=== PATIENT | male | born 1950 | race Two or more races ===

== ENCOUNTER → 2017-02-12 | Outpatient (CLI) | payer MEDICARE | END | disposition home or self-care (01) | LOC: LABWHC1 10:19 | PROVIDERS: ATTEND Orthopaedic Surgery | DX: Z01.812 Encounter for preprocedural laboratory examination (principal) | CPT/HCPCS: 87070 ==

== ENCOUNTER 2017-03-10 07:30 | Inpatient (IN) | payer MEDICARE ==
[2017-03-05 09:45] VITALS: BMI 42.0
--- NOTE | 2017-03-09 14:27 | HP ---
HISTORY AND PHYSICAL SURGERY SCHEDULED: 03/10/2017 HISTORY: Antonio Tapia is a 66-year-old patient is seen with symptomatic left knee osteoarthritis. After having treatment options discussed he elected to proceed with left total knee arthroplasty. Consent was obtained. Medical clearance was provided by Dr. Chun. PAST MEDICAL HISTORY: Hypertension, hyperlipidemia. PAST SURGICAL HISTORY: Right total knee arthroplasty. DAILY MEDICATIONS: 1. An antihypertensive. 2. Simvastatin. ALLERGIES: None reported. SOCIAL HISTORY: Patient denies current tobacco use. PHYSICAL EVALUATION OF THE LEFT KNEE: Range of motion is -1/2 to 120 degrees. Tenderness along the medial and lateral joint lines. Moderate effusion is present. There is crepitus along the medial and patellofemoral compartments with range of motion. There is pain with patellofemoral compression. Ligaments are stable. Hip rotation is without pain. Distal neurovascular exam is intact. Left knee radiographs reveal severe medial and patellofemoral compartment osteoarthritis. IMPRESSION: Left knee osteoarthritis. PLAN: Left total knee arthroplasty. MMODL / IJN: [id number] /
[~2017-03-10 07:30] MED LIST: ACETAMINOPHEN TAB 500 MG TAB PO ONE; MELOXICAM 7.5 MG TAB PO ONE; TRANEXAMIC ACID 1,000 MG in SODIUM CHLORIDE 0.9% 100 ML IVPB ONE; ceFAZolin 2 GM in SODIUM CHLORIDE 0.9% 100 ML IVPB ONE
[2017-03-10] MEDS ORDERED: LIDOCAINE 1% 20 ML VIAL (10MG/ML) FOR IV START INTRADERMA ONE (08:39)
[2017-03-10] MEDS: LACTATED RINGERS 1,000 ML IV SCH ×3 (08:39→15:37)
[2017-03-10] MEDS ORDERED: DEXAMETHASONE SOD PHOS (MDV) 100 MG/10 ML VIAL IV ONE (08:42)
[2017-03-10] MEDS ORDERED: ONDANSETRON 4 MG/2 ML VIAL IVP ONE (08:42)
[2017-03-10 09:09] LABS: Glucose,Whole Blood 116 mg/dL (75-99)
[2017-03-10] MEDS ORDERED: MIDAZOLAM 2 MG/2 ML VIAL IVP ONE (09:23)
[2017-03-10] MEDS ORDERED: ROPIVACAINE 1,100 MG, SODIUM CHLORIDE 0.9% 330 ML MISCELLANE PRN ×2 (09:52)
--- NOTE | 2017-03-10 09:54 | P.ONQ ---
Anesthesiology Proc Note - PNB - Peripheral Nerve Block Performed Right Adductor Canal Infusion Time Out Performed: Yes Procedure Start Time: :24 Procedure Stop Time: :34 Indication: Acute Post-Operative Pain, Requested by physician Sedation Type: Sedate with meaningful contact maintained Preparation: Sterile Dressing Position: Supine Catheter: Indwelling Needle Types: On-Q Needle Size: 100mm (4") Needle Gauge: 21 Technique: Ultrasound Injectate: 0.5% Ropivacaine (see comment for volume) (,5% ropi 20cc) Blood Aspirated: No Pain Paresthesia on Injection Noted: No Resistance on Injection: Normal Events: Uneventful and Well Tolerated
--- NOTE | 2017-03-10 10:04 | P.DS ---
Providers Date of admission: 03/10/17 08:17 Expected date of discharge: 03/12/17 Attending physician: Alejandro May Primary care physician: Nancy Coon [facility] Hospital Course: Date of admission: 03/10/2017 Date of discharge: 03/12/2017 Admission diagnosis: Status post left total knee arthroplasty Discharge diagnosis: Same Attending physician: Dr. May Surgical procedures: Left total knee arthroplasty Brief history: Patient is a 66-year-old male with a history of progressive primary left knee osteoarthritis. At this point patient has failed conservative treatment measures and has opted to proceed with a elective left total knee arthroplasty. Hospital course: Details of patient's surgery can be found in operative report. Patient tolerated the procedure well and was subsequently transported to orthopedic floor. Patient's orthopeidc and medical care was provided daily. Patient had daily laboratory tests performed for evaluation of overall blood counts. Patient had daily physical therapy to include strengthening range of motion as well as education with walker ambulation. Patient had daily CPM usage as part of their physical therapy program. Patient was treated with Lovenox for their postoperative DVT prophylaxis during their inpatient stay. Patient was noted to have a relatively uneventful postoperative course. Patient reported satisfactory pain control with oral pain medications by postoperative day 2. Patient showed satisfactory progress with physical therapy. Patient moved steadily through the program and had no difficulty meeting the goals by postoperative day 2. Given patient's otherwise satisfactory course and having met physical therapy goals, plan is to discharge patient home on postoperative day 2. Discharge condition/disposition: Patient will be discharged home in stable condition. Discharge medications: Instructions are given on resumption of patient's normal daily medications per primary care recommendation, in addition patient will be prescribed N[place]alton 7.5 mg/325 mg, tramadol 50 mg, Vistaril 25 mg, Pepcid 20 mg, Xarelto 10 mg. Discharge instructions: 1. Wound care and infection precautions, keep incision dry and covered while showering, no lotions, creams, moisturizers. No soaking, tubs, pools, hottubs. Do not scrub over the incision. 2. Weight-bear as tolerated with walker / cane until follow-up. 3. Ice and elevate when necessary. Do not exceed 20 minutes per hour with ice pack. 4. Utilize compression sleeve until seen at first follow up appointment. 5. Visiting nursing care. 6. Home physical therapy including home CPM]. 7. Pain meds and anticoagulants per prescription. 8. Pain medication has potential to cause constipation. Increase oral fluid and fiber intake. Contact primary care provider if you have not had a bowel movement within 48 hours after discharge 9. No anti-inflammatory medication until discussed at first post operative visit, this including Motrin, Aleve, Mobic, Diclofenac. 10. Follow up in office at 2 weeks postop with Mio Ruteldge PA-C 11. Follow up with your primary care doctor 7-10 days after discharge. 12. Contact [facility] with any questions, . Procedures: Left total knee arthroplasty Patient Condition at Discharge: Good Plan - Discharge Summary New Discharge Prescriptions: New Rivaroxaban [Xarelto] 10 mg PO DAILY #12 tab Famotidine [Pepcid] 20 mg PO DAILY #30 tablet HYDROcodone/APAP 7.5-325MG [Nondalton 7.5] 1 - 2 each PO Q6HR PRN #60 tab PRN Reason: Pain hydrOXYzine PAMOATE [Vistaril] 25 mg PO Q6HR #40 capsule traMADol HCl [Ultram] 50 mg PO Q6H PRN #40 tab PRN Reason: Pain No Action Simvastatin [Zocor] 40 mg PO QAM Losartan/Hydrochlorothiazide [Losartan-Hctz 100-25 mg Tab] 1 tab PO QAM Ibuprofen 600 mg PO DAILY PRN PRN Reason: Pain Tamsulosin [Flomax] 0.4 mg PO HS Aspirin [Adult Low Dose Aspirin EC] 81 mg PO DAILY Discharge Medication List Losartan/Hydrochlorothiazide [Losartan-Hctz 100-25 mg Tab] 1 tab PO QAM [History] Simvastatin [Zocor] 40 mg PO QAM 05/08/16 [History] Aspirin [Adult Low Dose Aspirin EC] 81 mg PO DAILY 03/05/17 [History] Ibuprofen 600 mg PO DAILY PRN 03/05/17 [History] Tamsulosin [Flomax] 0.4 mg PO HS 03/05/17 [History] Rivaroxaban [Xarelto] 10 mg PO DAILY #12 tab 03/11/17 [Rx] Famotidine [Pepcid] 20 mg PO DAILY #30 tablet 03/12/17 [Rx] HYDROcodone/APAP 7.5-325MG [Nondalton 7.5] 1 - 2 each PO Q6HR PRN #60 tab 03/12/17 [ Rx] hydrOXYzine PAMOATE [Vistaril] 25 mg PO Q6HR #40 capsule 03/12/17 [Rx] traMADol HCl [Ultram] 50 mg PO Q6H PRN #40 tab 03/12/17 [Rx] Follow up Appointment(s)/Referral(s): [facility], [NON-STAFF] - Gamaliel Rutledge, HIMA [[employer]] - 2 Weeks Activity/Diet/Wound Care/Special Instructions: Orthopedic Discharge Instructions: 1. Wound care and infection precautions, keep incision dry and covered while showering, no lotions, creams, moisturizers. No soaking, pools, hot tubs. Do not scrub over incision. 2. Weight-bear as tolerated with walker / cane until follow-up. 3. Ice and elevate when necessary. Do not exceed 20 minutes per hour with ice pack. 4. Utilize compression sleeve until seen at first follow up appointment. 5. Visiting nursing care. 6. Home physical therapy including home CPM. 7. Pain meds and anticoagulants per prescription. 8. Pain medication has potential to cause constipation. Increase oral fluid and fiber intake. Contact primary care provider if you have not had a bowel movement within 48 hours after discharge. 9. No anti-inflammatory medication until discussed at first post operative visit, this including Motrin, Aleve, Mobic, Diclofenac. 10. Follow up in office at 2 weeks postop with Mio Rutledge PA-C 11. Follow up with your primary care doctor 7-10 days after discharge. 12. Contact [facility] with any questions, . Discharge Disposition: HOME WITH HOME HEALTH SERVICES
[2017-03-10] MEDS ORDERED: TRANEXAMIC ACID 1,000 MG/10 ML VIAL ONE (10:23)
[2017-03-10] MEDS ORDERED: ceFAZolin 3,000 MG in SODIUM CHLORIDE 0.9% IRRIGATIO 3,000 ML IRRIGATION ONE (10:23)
[2017-03-10] MEDS ORDERED: fentaNYL (PF) 50 MCG/ML 2 ML AMP ONE (10:23)
[2017-03-10] MEDS ORDERED: PROPOFOL 10 MG/ML 20 ML VIAL IV ONE (10:23)
[2017-03-10] MEDS ORDERED: MIDAZOLAM 2 MG/2 ML VIAL ONE (10:23)
[2017-03-10] MEDS ORDERED: SODIUM CHLORIDE 0.9% 100 ML BAG ONE (10:23)
[2017-03-10] MEDS: ROPIVACAINE 246.25 MG, EPINEPHrine 0.5 MG, KETOROLAC 30 MG, cloNIDine HCL/PF 80 MCG, WA... MISCELLANE ONE ×10 (10:58→11:53)
[2017-03-10] MEDS ORDERED: LACTATED RINGERS 1,000 ML IV ONE (11:08)
[2017-03-10] MEDS ORDERED: NALOXONE 0.4 MG/ML 1 ML VIAL IV PRN (12:44)
[2017-03-10] MEDS ORDERED: HYDROmorphone 1 MG/ML 1 ML SYRINGE IVP PRN ×3 (12:44)
[2017-03-10] MEDS ORDERED: HYDROcodone/APAP 7.5-325MG 1 EACH TAB PO PRN (12:44)
[2017-03-10] MEDS ORDERED: hydrOXYzine PAMOATE 25 MG CAP PO PRN (12:44)
--- NOTE | 2017-03-10 12:44 | P.OP ---
Date of Procedure: 03/10/17 Preoperative Diagnosis: Left knee osteoarthritis Postoperative Diagnosis: Left knee osteoarthritis Procedure(s) Performed: Left total knee arthroplasty Implants: 1. Kerwin persona left size 9 cruciate retaining standard cemented femur 2. Kerwin persona left size F cemented tibia 3. Kerwin persona 10 mm medial congruent polyethylene tibial insert 4. Kerwin persona 38 mm all polyethylene cemented patella Anesthesia: regional (Adductor canal catheter), spinal Surgeon: Alejandro May Film Flat Inspector #1: Gamaliel Rutledge Estimated Blood Loss (ml): 200 Pathology: other (Bone) Condition: stable Disposition: PACU Indications for Procedure: 66-year-old patient seen with progressive left knee pain. After treatment options were discussed, he elected to proceed with total knee arthroplasty. Operative Findings: see description of procedure Description of Procedure: Patient was taken to the operative suite after having an adductor canal catheter placed by the department of anesthesia. Patient underwent a spinal anesthetic by the department of anesthesia. Patient was given preoperative IV intake antibiotics and TXA. A well-padded tourniquet was placed about the left lower extremity. The lower extremity was then prepped and draped in the normal sterile orthopedic fashion. A standard anterior incision was made sharply through skin. Dissection was taken down through the subcutaneous soft tissues down to the extensor mechanism. A medial arthrotomy was performed, patella was everted and knee was flexed. There was advanced osteoarthritis noted. A proximal tibial cutting guide was positioned. Proximal tibial cut was made. A distal intramedullary femoral cutting guide was positioned, distal femoral cut made. We placed the appropriate sizing guide and selected the appropriate size. A distal 4-in-1 femoral cutting block was positioned, distal femoral cuts were made. We now placed a trial femoral component into position, along with an appropriate size tibial tray and insert. We now took the knee through range of motion and had full extension good flexion and good overall soft tissue balance noted. The patella was everted and a flush cut made with patellar quad tendon. We templated the patella, appropriate drill holes were made. An appropriate trial patella was positioned, knee was taken through full range of motion with the patella tracking very nicely. The trial patella was removed. Drill holes were made through the femoral component. All trial components were removed after marking off the appropriate rotation of the tibia. Retractors were now positioned along the proximal tibia. An appropriate keel punch was made with the appropriate size tibial guide. The tourniquet was insufflated to 350. At this point appropriate size implants were chosen and opened. The joint was irrigated copiously with pulse lavage mechanical irrigation. The deep soft tissues were infiltrated local analgesic. We mixed antibiotic methylmethacrylate. Once the methyl methacrylate was ready, the tibial component was cemented into place removing any excess methylmethacrylate. The femoral component was cemented into place removing the removing any excess methylmethacrylate. We then inserted the appropriate size polyethylene tibial insert. We made sure that it was locked into position. We took the knee into full extension, and then back in a flexion making sure we had removed any excess methylmethacrylate. The patellar component was then cemented down and secured with clamp. Excess methylmethacrylate removed. We kept the knee in full extension, patellar clamp in position until methylmethacrylate had hardened. Once it had hardened the patellar clamp was removed. The knee was taken through full range of motion. The patella tracked nicely. There was good soft tissue balancing. The tourniquet was now released. Additional hemostasis was achieved via electrocautery. A second gram of TXA was given. The wound was irrigated with pulse lavage mechanical irrigation. The superficial soft tissues were infiltrated local analgesic. The extensor mechanism was repaired with Vicryl. We checked the repair with range of motion and it was stable. The subcutaneous soft tissues were repaired with Vicryl in layers. The skin was approximated with pernio/Dermabond. Sterile dressings were applied followed by loose web roll and Shabbir bandage. The patient was transferred to a bed, and taken to recovery in stable and satisfactory condition. Mio ALBERTS assisted with the procedure.
--- NOTE | 2017-03-10 13:11 | XR ---
EXAMINATION TYPE: XR knee limited LT DATE OF EXAM: 03/10/2017 COMPARISON: NONE TECHNIQUE: Two views submitted HISTORY: Post op FINDINGS: There is a prosthetic knee in near anatomic alignment. There is soft tissue edema and emphysema. Va scular calcifications noted. IMPRESSION: 1. Postoperative change. Appears in near-anatomic alignment
[2017-03-10] MEDS ORDERED: HYDROmorphone 1 MG/ML 1 ML SYRINGE IVP ONE ×2 (14:09→14:20)
[2017-03-10] MEDS: traMADol 50 MG TAB PO SCH ×3 (15:37→21:10)
[2017-03-10] MEDS: ceFAZolin 2 GM in SODIUM CHLORIDE 0.9% 100 ML IVPB SCH (16:42)
--- NOTE | 2017-03-10 18:46 | P.CONS ---
History of Present Illness - Reason for Consult Consult date: 03/10/17 Medical management Requesting physician: Alejandro May - Chief Complaint Left total knee arthroplasty, CAD, hypertension, hyperlipidemia, BPH - History of Present Illness 66-year-old male overweight [address] Chun patient's with past medical history of hypertension hyperlipidemia and CAD post [place] who has been having severe pain and arthritis of the left knee for the last few years had failed conservative management not been able to ambulate and walk was referred to see Dr. May and with testing showed severe advanced arthritis patient was scheduled for elective left total knee arthroplasty which was done today with Dr. May successfully with no major complication. Patient was admitted to the medical floor after surgery feeling well no change in his hemodynamic status and feeling well pain is under control. Review of Systems Constitutional: Reports chronic pain, Reports fatigue, Reports lethargy, Denies as per HPI, Denies anorexia, Denies chills, Denies chronic headaches, Denies daytime sleepiness, Denies fever, Denies malaise, Denies night sweats, Denies poor appetite, Denies sweats, Denies weakness, Denies weight gain, Denies weight loss Eyes: bilateral as per HPI Ears: bilateral: decreased hearing Ears, nose, mouth and throat: Reports dental pain, Reports headache, Reports nasal congestion, Reports sinus pain, Reports sinus pressure, Denies as per HPI , Denies ant. neck pain, Denies bleeding gums, Denies dysphagia, Denies epistaxis, Denies hoarseness, Denies mouth pain, Denies nasal discharge, Denies neck fullness/pressure, Denies neck lump, Denies nose pain, Denies odynophagia, Denies post-nasal drip, Denies swelling in mouth, Denies swelling in throat, Denies sore throat, Denies vertigo, Denies voice changes Cardiovascular: Reports dyspnea on exertion, Reports edema, Reports high blood pressure, Reports lightheadedness, Reports orthopnea, Reports palpitations, Reports rapid heart beat, Denies as per HPI, Denies chest pain, Denies claudication, Denies decreased exercise tolerance, Denies irregular heart beat, Denies leg edema, Denies paroxysmal nocturnal dyspnea, Denies phlebitis, Denies shortness of breath, Denies syncope Respiratory: Reports congestion, Reports dyspnea, Reports respiratory infections , Reports wheezing, Denies as per HPI, Denies cough, Denies cough with sputum, Denies excessive sputum, Denies hemoptysis, Denies home oxygen, Denies pain, Denies pain on inspiration, Denies pleurisy, Denies sleep apnea, Denies snoring Gastrointestinal: Reports abdominal pain, Reports bloating, Reports dyspepsia, Reports indigestion, Reports loss of appetite, Reports nausea, Denies as per HPI , Denies belching, Denies BRBPR, Denies change in bowel habits, Denies coffee ground emesis, Denies constipation, Denies diarrhea, Denies early satiety, Denies excessive gas, Denies heartburn, Denies hematemesis, Denies hematochezia , Denies jaundice, Denies lactose intolerance, Denies melena, Denies vomiting Genitourinary: Reports dysuria, Reports polyuria, Reports urinary frequency, Reports urinary hesitancy, Reports urinary retention, Denies as per HPI, Denies decreased libido, Denies difficulties fathering child, Denies discharge, Denies erectile dysfunction, Denies flank pain, Denies genital pain, Denies genital sores, Denies hematuria, Denies impotence, Denies incontinence, Denies kidney stones, Denies nocturia, Denies testicular lump, Denies testicular pain Musculoskeletal: Reports frequent falls, Reports limitation of motion, Reports low back pain, Reports neck pain, Reports neck stiffness, Denies as per HPI, Denies arm numbness/tingling, Denies atrophy, Denies fractures, Denies gait dysfunction, Denies hot joints, Denies leg numbness/tingling, Denies loss of height, Denies morning stiffness, Denies muscle cramps, Denies muscle weakness, Denies myalgias, Denies prior amputations, Denies redness of joints, Denies shooting arm pain, Denies shooting leg pain Integumentary: Reports rash, Denies as per HPI, Denies acne, Denies boils, Denies brittle nails, Denies change in hair/nails, Denies color changes, Denies darkening of skin, Denies depigmentation, Denies dryness, Denies foot/leg ulcers , Denies growths, Denies hirsutism, Denies lesions, Denies onychomycosis, Denies pruritus, Denies sores, Denies striae, Denies unusual bruising, Denies wounds Neurological: Reports numbness, Reports paresthesias, Reports tingling, Denies as per HPI, Denies aphasia, Denies ataxia, Denies balance difficulties, Denies burning pain, Denies change in mentation, Denies change in smell/taste, Denies change in speech, Denies confusion, Denies convulsions, Denies double vision, Denies gait dysfunction, Denies head injury, Denies headaches, Denies hearing difficulties, Denies lack of coordination, Denies loss of vision, Denies memory loss, Denies migraines, Denies motor disturbance, Denies paralysis, Denies seizures, Denies sensory deficit, Denies spasticity, Denies syncope, Denies tic , Denies transient paralysis, Denies tremors, Denies vertigo, Denies weakness, Denies visual changes Psychiatric: Reports anxiety, Denies as per HPI, Denies anhedonia, Denies anxiety attacks, Denies change in appetite, Denies change in libido, Denies change in sleep habits, Denies confusion, Denies depression, Denies difficulty concentrating, Denies disorientation, Denies hallucinations, Denies hopelessness , Denies hypersomnia, Denies insomnia, Denies irritability, Denies memory loss, Denies mood swings, Denies paranoia, Denies sadness/tearfulness, Denies sleep disturbances, Denies suicidal ideation Endocrine: Reports cold intolerance, Reports fatigue, Reports nocturia, Reports polydipsia, Denies as per HPI, Denies deepening of the voice, Denies excessive sweating, Denies excessive thirst, Denies flushing, Denies heat intolerance, Denies high blood sugars, Denies increase in ring/shoe/hat size, Denies low blood sugars, Denies palpitations, Denies polyphagia, Denies polyuria, Denies proptosis, Denies recent glucocorticoid use, Denies thyroid mass, Denies weight change Hematologic/Lymphatic: Reports easy bruising, Denies as per HPI, Denies easy bleeding, Denies lymphadenopathy, Denies lymphedema, Denies thrombophilia Allergic/Immunologic: Denies as per HPI, Denies allergic rhinitis, Denies anaphylaxis, Denies angioedema, Denies gluten intolerance, Denies persistent infections, Denies seasonal allergies, Denies urticaria, Denies wheezing Past Medical History Past Medical History: Cancer, Eye Disorder, Hearing Disorder / Deafness, Hyperlipidemia, Hypertension, Myocardial Infarction ([place]), Osteoarthritis (OA), Prostate Disorder, Sleep Apnea/CPAP/BIPAP Additional Past Medical History / Comment(s): legally blind lt eye, hx bladder and skin cancer, diet control diabetic, frequent urinartion Last Myocardial Infarction Date:: 1989 History of Any Multi-Drug Resistant Organisms: None Reported Past Surgical History: Joint Replacement, Orthopedic Surgery Additional Past Surgical History / Comment(s): Traumatic amputation index digit lt hand, tumor removed from bladder, rt knee replacement, spinal steriod injections, Past Anesthesia/Blood Transfusion Reactions: Postoperative Nausea & Vomiting ( PONV) Additional Past Anesthesia/Blood Transfusion Reaction / Comm: PONV one time Smoking Status: Former smoker - Past Family History Mother Family Medical History: Cancer, Hypertension Father Family Medical History: Myocardial Infarction ([place]) Medications and Allergies Home Medications Medication Instructions Recorded Confirmed Type Losartan/Hydrochlorothiazide 1 tab PO QAM 05/08/16 03/10/17 History [Losartan-Hctz 100-25 mg Tab] Simvastatin [Zocor] 40 mg PO QAM 05/08/16 03/10/17 History Aspirin [Adult Low Dose Aspirin EC] 81 mg PO DAILY 03/05/17 03/10/17 History Ibuprofen 600 mg PO DAILY PRN 03/05/17 03/10/17 History Tamsulosin [Flomax] 0.4 mg PO HS 03/05/17 03/10/17 History Allergies Allergy/AdvReac Type Severity Reaction Status Date / Time No Known Allergies Allergy Verified 03/10/17 13:30 Physical Exam Vitals: Vital Signs Temp Pulse Resp BP Pulse Ox 03/10/17 17:05 83 131/54 03/10/17 16:50 75 131/64 03/10/17 16:35 71 125/63 03/10/17 16:20 72 118/66 03/10/17 16:05 69 133/69 03/10/17 15:50 71 121/69 03/10/17 15:35 72 126/82 03/10/17 15:20 74 125/82 03/10/17 15:05 96.9 F L 77 16 112/85 97 03/10/17 14:45 67 16 117/67 99 03/10/17 14:30 69 16 118/67 98 03/10/17 14:15 67 16 116/68 97 03/10/17 14:00 69 16 116/70 98 03/10/17 13:45 67 16 118/70 97 03/10/17 13:30 70 16 118/68 98 03/10/17 13:15 72 16 112/67 99 03/10/17 13:00 67 16 110/71 97 03/10/17 12:45 97.8 F 70 16 108/71 97 03/10/17 09:40 68 18 117/60 97 03/10/17 08:37 97.7 F 87 16 114/81 96 Intake and Output 03/10/17 03/10/17 03/10/17 06:59 14:59 22:59 Intake Total 1801 Output Total 450 Balance 1351 Intake: IV 1801 Output: Urine 250 Estimated Blood Loss 200 - Constitutional General appearance: no average body habitus, cooperative, no disheveled, no mild distress, no morbidly obese, no acute distress, obese, no severe distress, no thin - EENT Eyes: no abnormal pupil, no anicteric sclerae, no disc margins sharp, no edentulous, no EOMI, no PERRLA, no fundus normal, no photophobia, no dentition normal, no poor dentition, no ptosis, no scleral icterus, normal appearance ENT: no hard of hearing, no hearing grossly normal, no NA/AT, normal oropharynx , no other, no pharyngeal erythema, no thrush, no tonsillar exudates, no tonsillar swelling Ears: bilateral: normal - Neck Neck: no lymphadenopathy, normal ROM, no other, no rigidity, no stridor, no thyromegaly Carotids: bilateral: upstroke normal Thyroid: bilateral: normal size - Respiratory Respiratory: bilateral: CTA, diminished - Cardiovascular Rhythm: regular Heart sounds: normal: S1, S2 Abnormal Heart Sounds: systolic murmur, S3 Gallop - Gastrointestinal General gastrointestinal: no absent bowel sounds, no decreased bowel sounds, distended, no hepatomegaly, no hyperactive bowel sounds, normal bowel sounds, no organomegaly, no rigid, no scaphoid, soft, no splenomegaly, no tenderness, no umbilical hernia, no ventral hernia - Integumentary Incision of his left knee looks good with no hematoma bleeding no induration or sign of infection. Integumentary: no calor, no cellulitis, no cyanotic, no decreased turgor, no flushed, no jaundiced, normal, no normal turgor, pale, no rash, no ulcer - Neurologic Neurologic: CNII-XII intact - Musculoskeletal Musculoskeletal: no gait normal, generalized weakness, no strength equal bilaterally, no right sided weakness, no left sided weakness - Psychiatric Psychiatric: A&O x's 3, appropriate affect, no intact judgment & insight Results Labs: Abnormal Lab Results - Last 24 Hours (Table) 03/10/17 Range/Units 08:55 POC Glucose (mg/dL) 116 H (75-99) mg/dL Assessment and Plan Plan: 1 post left total knee arthroplasty: Resume home meds continue GI, DVT and pulmonary prophylaxis protocol. 2 history of CAD: No chest pain or angina has been doing good with no symptoms lately. 3 hypertension: Resume losartan HCT at 100/25 g a day. 4 hyperlipidemia: Remain on Zocor 40 mg daily. 5 BPH: Doing much better on Flomax 0.4 mg daily. 6 obstructive sleep apnea: Has been on CPAP which will be resume in the hospital. 7 DVT prophylaxis: Patient be continue on DVT prophylaxis protocol per orthopedic. 8 GI prophylaxis: Patient be on Pepcid 20 mg daily. CODE STATUS: Full code. Dr. May thank you much for the consult if I can be of any further help to please let me know.
[2017-03-10] MEDS: SENNOSIDES-DOCUSATE SODIUM 1 EACH TAB PO SCH (20:17)
[2017-03-10] MEDS: ENOXAPARIN 30 MG/0.3 ML SYRINGE SQ SCH (20:41)
[2017-03-10] MEDS: TAMSULOSIN 0.4 MG CAP.ER.24H PO SCH (20:41)
[2017-03-11] MEDS: ceFAZolin 2 GM in SODIUM CHLORIDE 0.9% 100 ML IVPB SCH (00:09)
[2017-03-11 00:25] VITALS: RESP 16
[2017-03-11] MEDS: LACTATED RINGERS 1,000 ML IV SCH ×3 (01:05→08:26)
[2017-03-11] MEDS: HYDROcodone/APAP 7.5-325MG 1 EACH TAB PO PRN ×4 (03:48→20:48)
[2017-03-11 07:53] LABS: Basophils % (A) 0 %; CH 33.4; CHCM 35.3; Eosinophils # (A) 0.1 k/uL (0-0.7); Eosinophils % (A) 1 %; HCT 33.8 % (39.0-53.0); HDW 2.53; Luc # (Auto) 0.19; Luc % (Auto) 2; Lymphocytes % (A) 16 %; MCH 32.5 pg (25.0-35.0); MCHC 34.2 g/dL (31.0-37.0); MCV 94.9 fL (80.0-100.0); Mean Platelet Volume 7.2; Monocytes # (A) 0.7 k/uL (0-1.0); Monocytes % (A) 6 %; Neutrophils # (A) 9.4 k/uL (1.3-7.7); Neutrophils % (A) 76 %; RBC 3.56 m/uL (4.30-5.90); RDW 13.3 % (11.5-15.5); WBC 12.5 k/uL (3.8-10.6); WBC (Perox) 12.61
[2017-03-11] MEDS: traMADol 50 MG TAB PO SCH ×4 (07:55→22:45)
[2017-03-11 08:03] LABS: HGB 11.6 gm/dL (13.0-17.5)
[2017-03-11] MEDS: FAMOTIDINE 20 MG TAB PO SCH (08:21)
[2017-03-11] MEDS: ATORVASTATIN 20 MG TAB PO SCH (08:21)
[2017-03-11] MEDS: ASPIRIN 81 MG CHEW PO SCH (08:21)
[2017-03-11] MEDS: MELOXICAM 7.5 MG TAB PO SCH (08:21)
[2017-03-11] MEDS: LOSARTAN-HCTZ 50-12.5 MG 1 EACH TAB PO SCH (08:21)
[2017-03-11] MEDS: ENOXAPARIN 30 MG/0.3 ML SYRINGE SQ SCH ×2 (08:21→20:45)
--- NOTE | 2017-03-11 10:42 | P.PN ---
Progress Note - Text 03/11 620am 66-year-old male status post total knee replacement by Dr. May. patient has an On-Q pump for postop pain control, with vas 0f 7 this morning. The rate of infusion was increased to 12 mL an hour. He was starting to feel better. We 'll reevaluate in morning
[2017-03-11] MEDS ORDERED: MULTIVITAMINS, THERA 1 EACH TAB PO SCH (12:00)
--- NOTE | 2017-03-11 14:21 | P.PN ---
Subjective Principal diagnosis: Status post left total knee arthroplasty Patient is seen today resting in his hospital bed, his family at bedside. She' s doing well at this point. He is ambulating with therapy. His pain is well- controlled. He denies any headaches, lightheadedness, chest pain, shortness of breath. Objective - Vital Signs Vital signs: Vital Signs Temp 97.7 F 03/11/17 07:54 Pulse 76 03/11/17 07:54 Resp 16 03/11/17 07:54 BP 112/68 03/11/17 07:54 Pulse Ox 97 03/11/17 07:54 Intake & Output 03/10/17 03/11/17 03/11/17 18:59 06:59 18:59 Intake Total 1801 1550 240 Output Total 450 975 100 Balance 1351 575 140 Intake: IV 1801 Intake, IV Titration 800 Amount Lactated Ringers 1,000 ml 800 @ 100 mls/hr IV .Q10H [facility] Rx#:[id number] Oral 750 240 Output: Urine 250 975 100 Uretheral (Bassett) 350 100 Estimated Blood Loss 200 Other: Voiding Method Indwelling Catheter Indwelling Catheter # Voids 2 - Exam Left lower extremity: Incision is clean, dry and intact. Minimal soft tissue swelling present on the knee. Anterior posterior compartments of the upper leg are soft. Calf is soft , no tenderness with palpation. Plantar flexion, dorsiflexion, EHL, FHL are intact. Sensory exam light touch throughout the extremities intact, dorsal pedis pulses 2+ - Labs CBC & Chem 7: 03/11/17 07:12 Labs: Abnormal Lab Results - Last 24 Hours (Table) 03/11/17 Range/Units 07:12 WBC 12.5 H (3.8-10.6) k/uL RBC 3.56 L (4.30-5.90) m/uL Hgb 11.6 L D (13.0-17.5) gm/dL Hct 33.8 L (39.0-53.0) % Neutrophils # 9.4 H (1.3-7.7) k/uL Assessment and Plan Plan: Assessment: 1. Postop day #1 status post left total knee arthroplasty Plan: 1. Pain control, continue supportive oral medication 2. Continue therapy and CPM 3. Daily dressing changes/ice and elevate 4. Encourage incentive spirometer 5. GI and DVT prophylaxis, continue Lovenox 6. Medical recommendations 7. Discharge planning: Patient will be likely discharged home tomorrow Time with Patient: Less than 30
--- NOTE | 2017-03-11 15:47 | P.PN ---
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 May and with testing showed severe advanced arthritis patient was scheduled for elective left total knee arthroplasty which was done today with Dr. May successfully with no major complication. Patient was admitted to the medical floor after surgery feeling well no change in his hemodynamic status and feeling well pain is under control. 03/11: Today the patient was seen and evaluated. He is status post left total knee arthroplasty with Dr. May. He is doing very well, reports pain is well controlled. Bassett catheter removed today, will watch for signs of urinary retention. No post operative complications have been noted so far, will continue to watch for any signs of complications. Objective - Vital Signs Vital signs: Vital Signs Temp 97.7 F 03/11/17 07:54 Pulse 76 03/11/17 07:54 Resp 16 03/11/17 07:54 BP 112/68 03/11/17 07:54 Pulse Ox 97 03/11/17 07:54 Intake & Output 03/10/17 03/11/17 03/11/17 18:59 06:59 18:59 Intake Total 1801 1550 240 Output Total 450 975 100 Balance 1351 575 140 Intake: IV 1801 Intake, IV Titration 800 Amount Lactated Ringers 1,000 ml 800 @ 100 mls/hr IV .Q10H [facility] Rx#:[id number] Oral 750 240 Output: Urine 250 975 100 Uretheral (Bassett) 350 100 Estimated Blood Loss 200 Other: Voiding Method Indwelling Catheter Indwelling Catheter - Exam - Constitutional General appearance: no average body habitus, cooperative, no disheveled, no mild distress, no morbidly obese, no acute distress, obese, no severe distress, no thin - EENT Eyes: no abnormal pupil, no anicteric sclerae, no disc margins sharp, no edentulous, no EOMI, no PERRLA, no fundus normal, no photophobia, no dentition normal, no poor dentition, no ptosis, no scleral icterus, normal appearance ENT: no hard of hearing, no hearing grossly normal, no NA/AT, normal oropharynx , no other, no pharyngeal erythema, no thrush, no tonsillar exudates, no tonsillar swelling Ears: bilateral: normal - Neck Neck: no lymphadenopathy, normal ROM, no other, no rigidity, no stridor, no thyromegaly Carotids: bilateral: upstroke normal Thyroid: bilateral: normal size - Respiratory Respiratory: bilateral: CTA, diminished - Cardiovascular Rhythm: regular Heart sounds: normal: S1, S2 Abnormal Heart Sounds: systolic murmur, S3 Gallop - Gastrointestinal General gastrointestinal: no absent bowel sounds, no decreased bowel sounds, distended, no hepatomegaly, no hyperactive bowel sounds, normal bowel sounds, no organomegaly, no rigid, no scaphoid, soft, no splenomegaly, no tenderness, no umbilical hernia, no ventral hernia - Integumentary Incision of his left knee looks good with no hematoma bleeding no induration or sign of infection. Integumentary: no calor, no cellulitis, no cyanotic, no decreased turgor, no flushed, no jaundiced, normal, no normal turgor, pale, no rash, no ulcer - Neurologic Neurologic: CNII-XII intact - Musculoskeletal Musculoskeletal: no gait normal, generalized weakness, no strength equal bilaterally, no right sided weakness, no left sided weakness - Psychiatric Psychiatric: A&O x's 3, appropriate affect, no intact judgment & insight - Labs CBC & Chem 7: 03/11/17 07:12 Labs: Abnormal Lab Results - Last 24 Hours (Table) 03/11/17 Range/Units 07:12 WBC 12.5 H (3.8-10.6) k/uL RBC 3.56 L (4.30-5.90) m/uL Hgb 11.6 L D (13.0-17.5) gm/dL Hct 33.8 L (39.0-53.0) % Neutrophils # 9.4 H (1.3-7.7) k/uL Assessment and Plan Plan: 1 post left total knee arthroplasty: Resume home meds continue GI, DVT and pulmonary prophylaxis protocol. 2 history of CAD: No chest pain or angina has been doing good with no symptoms lately. 3 hypertension: Resume losartan HCT at 100/25 g a day. 4 hyperlipidemia: Remain on Zocor 40 mg daily. 5 BPH: Doing much better on Flomax 0.4 mg daily. 6 obstructive sleep apnea: Has been on CPAP which will be resume in the hospital. 7 DVT prophylaxis: Patient be continue on DVT prophylaxis protocol per orthopedic. 8 GI prophylaxis: Patient be on Pepcid 20 mg daily. CODE STATUS: Full code. Dr. May thank you much for the consult if I can be of any further help to please let me know. The above impression and plan were directed and discussed with the signing physician, Angelica Robledo nurse practitioner, acting as a scribe.
[2017-03-11] MEDS: TAMSULOSIN 0.4 MG CAP.ER.24H PO SCH (20:46)
[2017-03-11] MEDS: SENNOSIDES-DOCUSATE SODIUM 1 EACH TAB PO SCH (20:46)
[2017-03-12] MEDS: HYDROcodone/APAP 7.5-325MG 1 EACH TAB PO PRN ×2 (06:06→10:41)
[2017-03-12] MEDS: LACTATED RINGERS 1,000 ML IV SCH ×2 (06:57→08:47)
[2017-03-12 07:38] VITALS: BP 151/90; PULSE 91; TEMP 98.5
--- NOTE | 2017-03-12 08:13 | P.PN ---
Subjective Principal diagnosis: Status post left total knee arthroplasty Patient is seen today resting in his hospital bed, his family at bedside. He is ambulating with therapy. His pain is well-controlled. He denies any headaches , lightheadedness, chest pain, shortness of breath. Objective - Vital Signs Vital signs: Vital Signs Temp 98.5 F 03/12/17 07:37 Pulse 91 03/12/17 07:37 Resp 16 03/12/17 07:37 BP 151/90 03/12/17 07:37 Pulse Ox 94 L 03/12/17 07:37 Intake & Output 03/11/17 03/12/17 03/12/17 18:59 06:59 18:59 Intake Total 240 2120 Output Total 100 Balance 140 2120 Intake: Intake, IV Titration 200 Amount Lactated Ringers 1,000 ml 200 @ 100 mls/hr IV .Q10H [facility] Rx#:[id number] Oral 240 1920 Output: Urine 100 Uretheral (Bassett) 100 Other: Voiding Method Indwelling Catheter # Voids 2 3 - Exam Left lower extremity: Incision is clean, dry and intact. Minimal soft tissue swelling present on the knee. Anterior posterior compartments of the upper leg are soft. Calf is soft , no tenderness with palpation. Plantar flexion, dorsiflexion, EHL, FHL are intact. Sensory exam light touch throughout the extremities intact, dorsal pedis pulses 2+ - Labs CBC & Chem 7: 03/11/17 07:12 Assessment and Plan Plan: Assessment: 1. Postop day #2 status post left total knee arthroplasty Plan: 1. Pain control, continue supportive oral medication 2. Continue therapy and CPM 3. Daily dressing changes/ice and elevate 4. Encourage incentive spirometer 5. GI and DVT prophylaxis, will be discharged home on Xarelto 10mg 6. Medical recommendations 7. Discharge planning: Patient will be discharged home today Time with Patient: Less than 30
--- NOTE | 2017-03-12 08:28 | P.PN ---
Progress Note - Text The patient is status post left adductor canal catheter placement. Postoperative day #2. The catheter was placed for postoperative pain control, status post total left arthroplasty. Ropivacaine 0.2% is infusing at 8 mLs per hour. The patient has no complaints of left lower extremity numbness or weakness. Patient's VAS score is 3 -10. Assessment: Patient's adductor canal catheter is in place and working appropriately. Plan: continue infusion and adjust it as needed.
[2017-03-12] MEDS: LOSARTAN-HCTZ 50-12.5 MG 1 EACH TAB PO SCH (08:48)
[2017-03-12] MEDS: ATORVASTATIN 20 MG TAB PO SCH (08:49)
[2017-03-12] MEDS: MELOXICAM 7.5 MG TAB PO SCH (08:49)
[2017-03-12] MEDS: FAMOTIDINE 20 MG TAB PO SCH (08:49)
[2017-03-12] MEDS: ASPIRIN 81 MG CHEW PO SCH (08:49)
[2017-03-12] MEDS: ENOXAPARIN 30 MG/0.3 ML SYRINGE SQ SCH (08:49)
[2017-03-12] MEDS: traMADol 50 MG TAB PO SCH ×2 (08:59→12:22)
--- NOTE | 2017-03-12 11:49 | P.PN ---
Subjective 66-year-old male overweight one of Dr. Chun patient's with past medical history of hypertension, hyperlipidemia, and CAD post [place] who has been having severe pain and arthritis of the left knee for the last few years had failed conservative management not been able to ambulate and walk was referred to see Dr. May and with testing showed severe advanced arthritis patient was scheduled for elective left total knee arthroplasty which was done today with Dr. May successfully with no major complication. Patient was admitted to the medical floor after surgery feeling well no change in his hemodynamic status and feeling well pain is under control. 03/11: Today the patient was seen and evaluated. He is status post left total knee arthroplasty with Dr. May. He is doing very well, reports pain is well controlled. Bassett catheter removed today, will watch for signs of urinary retention. No post operative complications have been noted so far, will continue to watch for any signs of complications. 03/12: Patient is status post op day 2 for left total knee arthroplasty with Dr. May. Patient reports he is a very well, pain is well controlled. Bassett catheter was removed yesterday with no signs of urinary retention. Plan is for discharge home today. Objective - Vital Signs Vital signs: Vital Signs Temp 98.5 F 03/12/17 07:37 Pulse 91 03/12/17 07:37 Resp 16 03/12/17 07:37 BP 151/90 03/12/17 07:37 Pulse Ox 94 L 03/12/17 07:37 Intake & Output 03/11/17 03/12/17 03/12/17 18:59 06:59 18:59 Intake Total 240 2120 Output Total 100 Balance 140 2120 Intake: Intake, IV Titration 200 Amount Lactated Ringers 1,000 ml 200 @ 100 mls/hr IV .Q10H MARIO Rx#:[id number] Oral 240 1920 Output: Urine 100 Uretheral (Bassett) 100 Other: Voiding Method Indwelling Catheter # Voids 2 3 - Exam - Constitutional General appearance: no average body habitus, cooperative, no disheveled, no mild distress, no morbidly obese, no acute distress, obese, no severe distress, no thin - EENT Eyes: no abnormal pupil, no anicteric sclerae, no disc margins sharp, no edentulous, no EOMI, no PERRLA, no fundus normal, no photophobia, no dentition normal, no poor dentition, no ptosis, no scleral icterus, normal appearance ENT: no hard of hearing, no hearing grossly normal, no NA/AT, normal oropharynx , no other, no pharyngeal erythema, no thrush, no tonsillar exudates, no tonsillar swelling Ears: bilateral: normal - Neck Neck: no lymphadenopathy, normal ROM, no other, no rigidity, no stridor, no thyromegaly Carotids: bilateral: upstroke normal Thyroid: bilateral: normal size - Respiratory Respiratory: bilateral: CTA, diminished - Cardiovascular Rhythm: regular Heart sounds: normal: S1, S2 Abnormal Heart Sounds: systolic murmur, S3 Gallop - Gastrointestinal General gastrointestinal: no absent bowel sounds, no decreased bowel sounds, distended, no hepatomegaly, no hyperactive bowel sounds, normal bowel sounds, no organomegaly, no rigid, no scaphoid, soft, no splenomegaly, no tenderness, no umbilical hernia, no ventral hernia - Integumentary Incision of his left knee looks good with no hematoma bleeding no induration or sign of infection. Integumentary: no calor, no cellulitis, no cyanotic, no decreased turgor, no flushed, no jaundiced, normal, no normal turgor, pale, no rash, no ulcer - Neurologic Neurologic: CNII-XII intact - Musculoskeletal Musculoskeletal: no gait normal, generalized weakness, no strength equal bilaterally, no right sided weakness, no left sided weakness - Psychiatric Psychiatric: A&O x's 3, appropriate affect, no intact judgment & insight - Labs CBC & Chem 7: 03/11/17 07:12 Assessment and Plan Plan: 1 post left total knee arthroplasty: Resume home meds continue GI, DVT and pulmonary prophylaxis protocol. 2 history of CAD: No chest pain or angina has been doing good with no symptoms lately. 3 hypertension: Resume losartan HCT at 100/25 g a day. 4 hyperlipidemia: Remain on Zocor 40 mg daily. 5 BPH: Doing much better on Flomax 0.4 mg daily. 6 obstructive sleep apnea: Has been on CPAP which will be resume in the hospital. 7 DVT prophylaxis: Patient be continue on DVT prophylaxis protocol per orthopedic. 8 GI prophylaxis: Patient be on Pepcid 20 mg daily. CODE STATUS: Full code. Dr. May thank you much for the consult if I can be of any further help to please let me know. The above impression and plan were directed and discussed with the signing physician, Angelica Robledo nurse practitioner, acting as a scribe.
== END 2017-03-12 12:57 | disposition home health service (06) | DRG 470 ==
LOC: 2ORMAIN 08:17 → 3SUR 12:51
PROVIDERS: ADMIT Orthopaedic Surgery; ATTEND Orthopaedic Surgery
PROC: 0SRD0J9 Replacement of Left Knee Joint with Synthetic Substitute, Cemented, Open Approach (ICD-10-PCS; principal; 2017-03-10 10:05)
DX: M17.12 Unilateral primary osteoarthritis, left knee (principal); I10 Essential (primary) hypertension; E11.9 Type 2 diabetes mellitus without complications; E66.3 Overweight; E78.5 Hyperlipidemia, unspecified; G47.30 Sleep apnea, unspecified; H54.42 Blindness, left eye, normal vision right eye; H91.90 Unspecified hearing loss, unspecified ear; I25.10 Atherosclerotic heart disease of native coronary artery without angina pectoris; I25.2 Old myocardial infarction; N40.0 Benign prostatic hyperplasia without lower urinary tract symptoms; Z79.82 Long term (current) use of aspirin; Z79.899 Other long term (current) drug therapy; Z82.49 Family history of ischemic heart disease and other diseases of the circulatory system; Z85.828 Personal history of other malignant neoplasm of skin; Z87.891 Personal history of nicotine dependence; Z96.651 Presence of right artificial knee joint
CPT/HCPCS: 85025; 88300

== ENCOUNTER → 2017-05-21 | Outpatient (CLI) | payer MEDICARE ==
[2017-05-22 00:19] LABS: Urine Creatinine 72.2 mg/dL
== END | disposition home or self-care (01) ==
LOC: MMGSC 11:04
PROVIDERS: ATTEND Family Medicine
DX: E11.9 Type 2 diabetes mellitus without complications (principal)
CPT/HCPCS: 36415; 82043; 82570; 83036

== ENCOUNTER → 2017-08-22 | Outpatient (CLI) | payer MEDICARE ==
[2017-08-22 21:49] LABS: Basophils # (A) 0.1 k/uL (0-0.2); Basophils % (A) 1 %; Eosinophils # (A) 0.3 k/uL (0-0.7); Eosinophils % (A) 3 %; HCT 44.1 % (39.0-53.0); HGB 14.3 gm/dL (13.0-17.5); Lymphocytes # (A) 2.4 k/uL (1.0-4.8); Lymphocytes % (A) 28 %; MCH 30.8 pg (25.0-35.0); MCHC 32.3 g/dL (31.0-37.0); MCV 95.4 fL (80.0-100.0); Mean Platelet Volume 8.7; Monocytes # (A) 0.6 k/uL (0-1.0); Monocytes % (A) 7 %; Neutrophils # (A) 4.9 k/uL (1.3-7.7); Neutrophils % (A) 58 %; Platelet Count 282 k/uL (150-450); RBC 4.63 m/uL (4.30-5.90); RDW 13.3 % (11.5-15.5); WBC 8.4 k/uL (3.8-10.6)
[2017-08-22 22:06] LABS: ALT 28 U/L (21-72); AST 26 U/L (17-59); Albumin 4.3 g/dL (3.5-5.0); Alkaline Phosphatase 73 U/L (38-126); Anion Gap 10 mmol/L; Blood Urea Nitrogen 9 mg/dL (9-20); Calcium 9.6 mg/dL (8.4-10.2); Carbon Dioxide 29 mmol/L (22-30); Chloride 101 mmol/L (98-107); Cholesterol 188 mg/dL (<200); Glucose 103 mg/dL (74-99); HDL Cholesterol 55 mg/dL (40-60); LDL Cholesterol,Calculated 96 mg/dL (0-99); Potassium 3.9 mmol/L (3.5-5.1); Sodium 140 mmol/L (137-145); Total Bilirubin 0.5 mg/dL (0.2-1.3); Total Protein 7.1 g/dL (6.3-8.2); Triglycerides 185 mg/dL (<150); Uric Acid 6.5 mg/dL (3.5-8.5)
[2017-08-23 04:06] LABS: Hemoglobin A1C 6.1 % (4.0-6.0)
== END | disposition home or self-care (01) ==
LOC: MMGSC 10:03
PROVIDERS: ATTEND Family Medicine
DX: I10 Essential (primary) hypertension (principal); E78.5 Hyperlipidemia, unspecified; Z86.79 Personal history of other diseases of the circulatory system; Z85.51 Personal history of malignant neoplasm of bladder
CPT/HCPCS: 36415; 80053; 80061; 83036; 84550; 85025

== ENCOUNTER → 2020-03-27 | Outpatient (CLI) | payer MEDICARE | END | disposition home or self-care (01) | LOC: LABWHC1 06:58 | PROVIDERS: ATTEND Physician Assistant | DX: E05.90 Thyrotoxicosis, unspecified without thyrotoxic crisis or storm (principal) | CPT/HCPCS: 36415; 84443 ==

== ENCOUNTER → 2020-11-21 | Outpatient (CLI) | payer MEDICARE ==
[2020-11-21 07:24] LABS: African American GFR (CKD) >90 (>60 ml/min/1.73 sqM); Blood Urea Nitrogen 14 mg/dL (9-20); Non-African American GFR(CKD) >90 (>60 ml/min/1.73 sqM)
--- NOTE | 2020-11-21 09:12 | CT ---
EXAMINATION TYPE: CT abdomen pelvis w con DATE OF EXAM: 11/21/2020 COMPARISON: 05/28/2017 Frontal and thinks HISTORY: Follow up Bladder cancer. CT DLP: 2263.4 mGycm CONTRAST: CT scan of the abdomen and pelvis is performed with Oral Contrast and with IV Contrast, patient injec donny with 100 mL of Isovue 300. FINDINGS: LUNG BASES-: No visible nodule. No infiltrate. LIVER/GB: No calcified gallstones. No space occupying hepatic lesion. Biliary tree is of normal ca liber. PANCREAS: No inflammation. No distinct mass. SPLEEN: No splenic enlargement. No lesion seen. ADRENALS: No nodule. No thickening. KIDNEYS/BLADDER: No hydronephrosis. No nephrolithiasis. No distinct renal mass. Urinary bladder g rossly unremarkable. BOWEL: Normal appendix. Normal bowel caliber. No inflammation. Sigmoid diverticulosis without diver ticulitis. Sigmoid bowel wall thickening without inflammatory change. Consider direct visualization t o exclude neoplasm. GENITAL ORGANS: Prostate seeds are in place. LYMPH NODES: No greater than 1cm abdominal or pelvic lymph nodes are appreciated. AORTA: No significant abnormality. OSSEOUS STRUCTURES: No significant abnormality is seen. OTHER: No significant additional abnormality is seen. IMPRESSION: 1. No evidence for urinary bladder mass or wall thickening. No evidence for distant metastases. 2.Sigmoid diverticulosis without diverticulitis. Sigmoid bowel wall thickening without inflammatory c hange. Consider direct visualization to exclude neoplasm.
== END | disposition home or self-care (01) ==
LOC: RADCTMAIN 06:44
PROVIDERS: ATTEND Urology
DX: Z85.51 Personal history of malignant neoplasm of bladder (principal); C67.9 Malignant neoplasm of bladder, unspecified; Z08 Encounter for follow-up examination after completed treatment for malignant neoplasm
CPT/HCPCS: 82565; 84520; 74177; 36415; Q9967

== ENCOUNTER → 2021-01-25 | Outpatient (CLI) | payer MEDICARE ==
[2021-01-25 08:33] LABS: Basophils # (A) 0.1 k/uL (0-0.2); Basophils % (A) 1 %; Eosinophils # (A) 0.3 k/uL (0-0.7); Eosinophils % (A) 4 %; HCT 41.5 % (39.0-53.0); HGB 14.2 gm/dL (13.0-17.5); Lymphocytes # (A) 2.2 k/uL (1.0-4.8); Lymphocytes % (A) 26 %; MCH 32.8 pg (25.0-35.0); MCHC 34.3 g/dL (31.0-37.0); MCV 95.6 fL (80.0-100.0); Mean Platelet Volume 7.3; Monocytes # (A) 0.5 k/uL (0-1.0); Monocytes % (A) 6 %; Neutrophils % (A) 60 %; Platelet Count 240 k/uL (150-450); RBC 4.34 m/uL (4.30-5.90); RDW 12.2 % (11.5-15.5); WBC 8.3 k/uL (3.8-10.6)
[2021-01-25 08:44] LABS: African American GFR (CKD) >90 (>60 ml/min/1.73 sqM); Anion Gap 10 mmol/L; Blood Urea Nitrogen 14 mg/dL (9-20); Calcium 9.5 mg/dL (8.4-10.2); Carbon Dioxide 28 mmol/L (22-30); Chloride 101 mmol/L (98-107); Glucose 138 mg/dL (74-99); Non-African American GFR(CKD) >90 (>60 ml/min/1.73 sqM); Sodium 139 mmol/L (137-145)
== END | disposition home or self-care (01) ==
LOC: LABPAT 08:03
PROVIDERS: ATTEND Urology
DX: Z01.812 Encounter for preprocedural laboratory examination (principal); C67.4 Malignant neoplasm of posterior wall of bladder
CPT/HCPCS: 36415; 80048; 85025

== ENCOUNTER → 2021-01-30 | Outpatient (CLI) | payer MEDICARE | END | disposition home or self-care (01) | LOC: LABPAT 11:45 | PROVIDERS: ATTEND Urology | DX: Z01.810 Encounter for preprocedural cardiovascular examination (principal) | CPT/HCPCS: 93005 ==

== ENCOUNTER 2021-02-01 06:08 | Day surgery (SDC) | payer MEDICARE ==
[2021-01-29 16:05] VITALS: BMI 39.8
[~2021-02-01 06:08] MED LIST changes: -ACETAMINOPHEN TAB 500 MG TAB PO ONE; +DEXAMETHASONE SOD PHOSPHATE 4 MG/ML 1 ML VIAL IV ONE; +LACTATED RINGERS 1,000 ML IV SCH; +LIDOCAINE 1% (10MG/ML) FOR IV START INTRADERMA PRN; -MELOXICAM 7.5 MG TAB PO ONE; +ONDANSETRON 4 MG/2 ML VIAL IVP ONE; -TRANEXAMIC ACID 1,000 MG in SODIUM CHLORIDE 0.9% 100 ML IVPB ONE; -ceFAZolin 2 GM in SODIUM CHLORIDE 0.9% 100 ML IVPB ONE
--- NOTE | 2021-02-01 06:59 | P.GSHP ---
History of Present Illness H&P Date: 01/29/21 Chief Complaint: Microhematuria The patient is a 70-year-old white male with a history of BPH. He was recently found to have microhematuria. He has a history of superficial bladder cancer, for which he underwent resection in October 2013. Urine cytology shows mild reactive atypia. CT scan of the abdomen and pelvis shows no genitourinary abnormalities. Cystoscopy shows a tumor cephalad to the right ureteral orifice, and he now comes for resection. - Cardiovascular Cardiovascular: Reports high blood pressure - Genitourinary (Male) Genitourinary: Reports hematuria, Reports urinary frequency Past Medical History Past Medical History: Eye Disorder, Hearing Disorder / Deafness, Hyperlipidemia, Hypertension, Myocardial Infarction ([place]), Osteoarthritis (OA), Sleep Apnea/CPAP/BIPAP Additional Past Medical History / Comment(s): uses cpap,legally blind lt eye Last Myocardial Infarction Date:: 1989 History of Any Multi-Drug Resistant Organisms: None Reported Past Surgical History: Back Surgery, Orthopedic Surgery Additional Past Surgical History / Comment(s): 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 Past Anesthesia/Blood Transfusion Reactions: Postoperative Nausea & Vomiting (PONV) Additional Past Anesthesia/Blood Transfusion Reaction / Comment(s): no hx blood transfusion Additional Past Alcohol Use History / Comment(s): quit smoking pipe 2013,quit smoking vapor 2014,smoked approx on and off 40 yrs - Past Family History Mother Family Medical History: Cancer, Hypertension Father Family Medical History: Myocardial Infarction ([place]) Medications and Allergies Home Medications Medication Instructions Recorded Confirmed Type Losartan/Hydrochlorothiazide 1 tab PO QAM 05/08/16 01/29/21 History [Losartan-Hctz 100-25 mg Tab] Aspirin [Adult Low Dose Aspirin EC] 81 mg PO DAILY 03/05/17 01/29/21 History Atorvastatin [Lipitor] 40 mg PO DAILY 01/29/21 01/29/21 History Celecoxib [CeleBREX] 200 mg PO DAILY 01/29/21 01/29/21 History Allergies Allergy/AdvReac Type Severity Reaction Status Date / Time No Known Allergies Allergy Verified 02/01/21 06:50 Surgical - Exam - General well developed, well nourished, no distress - Respiratory normal respiratory effort - Abdomen Abdomen: soft, non tender, no guarding, no rigid, no rebound - Genitourinary normal penis with no external lesions, testicles non-tender - Psychiatric oriented to time, oriented to person, oriented to place, speech is normal, me jelani intact Results - Imaging CT scan - abdomen: report reviewed Assessment and Plan (1) Malignant neoplasm of bladder neck Current Visit: No Status: Acute Code(s): C67.5 - MALIGNANT NEOPLASM OF BLADDER NECK SNOMED Code(s): 784044856 Plan: Cystoscopy, transurethral resection of bladder tumor. The patient understands potential risks to include anesthesia, bleeding, infection, and bladder perforation.
[2021-02-01 07:20] VITALS: RESP 16
[2021-02-01] MEDS ORDERED: fentaNYL (PF) 50 MCG/ML 2 ML AMP ONE (07:40)
[2021-02-01] MEDS ORDERED: ceFAZolin 1,000 MG VIAL ONE (07:40)
[2021-02-01] MEDS ORDERED: SUCCINYLCHOLINE CHLORIDE 100 MG/5 ML SYR IV ONE (07:40)
[2021-02-01] MEDS ORDERED: LIDOCAINE 1% INJ 10MG/ML (20 ML MDV) ONE (07:40)
[2021-02-01] MEDS ORDERED: PROPOFOL 10 MG/ML 20 ML VIAL IV ONE (07:40)
[2021-02-01] MEDS ORDERED: MIDAZOLAM 2 MG/2 ML VIAL ONE (07:40)
[2021-02-01 08:25] VITALS: TEMP 97.8
--- NOTE | 2021-02-01 08:25 | P.OP ---
Date of Procedure: 02/01/21 Preoperative Diagnosis: Superficial urothelial carcinoma of the bladder Postoperative Diagnosis: Same Procedure(s) Performed: Cystoscopy, TUR-BT (small) Anesthesia: JUSTINEA Surgeon: Davie Cobb Estimated Blood Loss (ml): 0 IV fluids (ml): 100 Pathology: none sent Condition: stable Disposition: PACU Indications for Procedure: The patient is a 70-year-old white male with a history of BPH. He was recently found to have microhematuria. He has a history of superficial bladder cancer, for which he underwent resection in October 2013. Urine cytology shows mild reactive atypia. CT scan of the abdomen and pelvis shows no genitourinary abnormalities. Cystoscopy shows a tumor cephalad to the right ureteral orifice, and he now comes for resection. Operative Findings: 1 cm papillary tumor immediately cephalad to the right ureteral orifice. Description of Procedure: The patient was taken in the operating room and placed in the dorsal lithotomy position, with his legs supported in Néstor stirrups. The external genitalia was prepped and draped sterilely. The 25-[place] [employer] resectoscope sheath was introduced into the bladder. The bladder was inspected. Both ureteral orifices were of normal anatomic location and configuration, and clear urine effluxed from both. The entire bladder was examined, revealing a 1 cm papillary tumor immediately cephalad to the right ureteral orifice. The prostate was visually occluded with a bilobar configuration. No urothelial changes were seen within the prostatic urethra. Using the bipolar cutting loop, the tumor was resected down to the superficial muscle. Excellent hemostasis was attained. The ureteral orifice was not resected. The resected tissue was essentially vaporized, and therefore there was no surgical specimen. The resectoscope was removed and the procedure was terminated. The patient tolerated the procedure well and was taken to the recovery room in stable condition.
[2021-02-01 09:54] VITALS: BP 122/67; PULSE 71
== END 2021-02-01 10:00 | disposition home or self-care (01) ==
LOC: OR 06:08
PROVIDERS: ATTEND Urology
DX: C67.5 Malignant neoplasm of bladder neck (principal); I25.2 Old myocardial infarction; I10 Essential (primary) hypertension; E78.5 Hyperlipidemia, unspecified; M19.90 Unspecified osteoarthritis, unspecified site; N40.1 Benign prostatic hyperplasia with lower urinary tract symptoms; H91.90 Unspecified hearing loss, unspecified ear; G47.33 Obstructive sleep apnea (adult) (pediatric); Z99.81 Dependence on supplemental oxygen; I25.10 Atherosclerotic heart disease of native coronary artery without angina pectoris; Z79.1 Long term (current) use of non-steroidal anti-inflammatories (NSAID); Z79.82 Long term (current) use of aspirin; Z82.49 Family history of ischemic heart disease and other diseases of the circulatory system; Z87.891 Personal history of nicotine dependence
CPT/HCPCS: 52224; J2250; J1100; J2405; J0690; J2001; J3010; J0330; J2704

== ENCOUNTER → 2023-06-11 | Outpatient (CLI) | payer MEDICARE ==
[2023-06-11 07:24] LABS: African American GFR (CKD) >90 (>60 ml/min/1.73 sqM); Blood Urea Nitrogen 19 mg/dL (9-20); Non-African American GFR(CKD) >90 (>60 ml/min/1.73 sqM)
--- NOTE | 2023-06-11 08:36 | CT ---
EXAMINATION TYPE: CT abdomen pelvis w con DATE OF EXAM: 06/11/2023 COMPARISON: 11/21/2020 HISTORY: Bladder Cancer Follow up CT DLP: 1495.50 mGycm CONTRAST: CT scan of the abdomen and pelvis is performed with Oral Contrast and with IV Contrast, patient injec donny with 100 ml mL of Isovue 300. FINDINGS: LUNG BASES-: No visible nodule. No infiltrate. LIVER/GB: No calcified gallstones. No space occupying hepatic lesion. Biliary tree is of normal ca liber. PANCREAS: No inflammation. No distinct mass. SPLEEN: No splenic enlargement. No lesion seen. ADRENALS: No nodule. No thickening. KIDNEYS/BLADDER: No hydronephrosis. No nephrolithiasis. No distinct renal mass. Urinary bladder g rossly unremarkable. BOWEL: Normal appendix. Normal bowel caliber. No inflammation. Entered colonic diverticulosis witho ut diverticulitis. GENITAL ORGANS: Prostate gland enlargement. Prostate localization sequence. LYMPH NODES: No greater than 1cm abdominal or pelvic lymph nodes are appreciated. AORTA: No significant abnormality. OSSEOUS STRUCTURES: No significant abnormality is seen. OTHER: No significant additional abnormality is seen. IMPRESSION: 1. No evidence recurrent urinary bladder wall mass or thickening. No evidence for distant metastases.
== END | disposition home or self-care (01) ==
LOC: RADCTMAIN 06:44
PROVIDERS: ATTEND Urology
DX: C67.5 Malignant neoplasm of bladder neck (principal)
CPT/HCPCS: 82565; 84520; 74177; 36415; Q9967

== ENCOUNTER → 2024-07-26 | Outpatient (CLI) | payer MEDICARE ==
--- NOTE | 2024-07-26 07:49 | MR ---
EXAMINATION TYPE: MR Prostate wo/w con DATE OF EXAM: 07/26/2024 6:39 AM COMPARISON: 06/11/2023 CLINICAL INDICATION: Male, 74 years old with history of R97.20 ELEVATED PROSTATE SPECIFIC ANTIGEN [PS A]; Enlarged prostate, elevated PSA TECHNIQUE: Multi-planar, multi-sequence imaging of the pelvis is performed prior to and following the uncomplicated administration of bolus intravenous gadolinium. IV Contrast: 8 mL Gadobutrol Interpretive Criteria: PI-RADS v2.1 SERUM PSA: 10/2022=2.46 r107/2023=7.23 SURGICAL PATHOLOGY: No data available. FINDINGS: Prostatic dimensions: 5.1 x 5.8 x 5.2 cm. Ellipsoid Volume:80.54 (PSA density=0.09 ng/mL/mL) CENTRAL GLAND (Central and Transition Zones/CZ+TZ): Metal susceptibility artifact noted within the prostate gland as seen on prior CT limits evaluation. Low T2 signal area measuring 11 mm in the left central mid gland without associated signal abnormalit y on diffusion weighted imaging or postcontrast enhancement.(PI-RADS 3) Multiple bilateral, heterogenous appearing hypertrophic stromal nodules, without suspicious lesion. (PI-RADS 3) PERIPHERAL ZONE (PZ): Bilateral linear, indistinct wedgelike areas of low ADC, and low T2 signal, No evidence of masslike a bnormality, or localized perfusional hypervascularity, to further suggest a focus of clinically signi ficant prostate cancer. (PI-RADS 2) SEMINAL VESICLES (SV): Symmetric and unremarkable. PERIPROSTATIC TISSUES: Unremarkable. LYMPH NODES: No enlarged pelvic lymph node. REMAINING PELVIS: Bladder wall is within normal limits given distention. No abnormal free or organized intrapelvic fluid collection. No pathologic bowel dilation or mural thickening. Colonic diverticula are present. No hernia visualized, fatty changes to the left inguinal canal OSSEOUS STRUCTURES: No suspicious osseous abnormality. IMPRESSION: 1. Limited evaluation due to susceptibility artifact and metallic clips 2. PI-RADS 3 Lesion in the left central zone, mid gland measuring 11 mm. 3. Substantial BPH, estimated gland volume 80.54 mL. 4. No suspicious osseous lesion. No lymphadenopathy. No evidence of prostate adenocarcinoma involving the periprostatic tissues. [facility], , 07/26/2024 7:47 AM
== END | disposition home or self-care (01) ==
LOC: RADMRIMAIN 05:46
PROVIDERS: ATTEND Urology
DX: R97.20 Elevated prostate specific antigen [PSA] (principal); N40.0 Benign prostatic hyperplasia without lower urinary tract symptoms
CPT/HCPCS: 72197; A9585

== ENCOUNTER → 2024-09-22 | Outpatient (CLI) | payer MEDICARE ==
[2024-09-22 18:38] LABS: BUN/Creat Ratio 20.38 Ratio (12.00-20.00); Blood Urea Nitrogen 16.3 mg/dL (9.0-27.0); Calcium 9.5 mg/dL (8.7-10.3); Carbon Dioxide 26.9 mmol/L (21.6-31.8); Chloride 104 mmol/L (96-109); Glucose 109 mg/dL (70-110); Sodium 142 mmol/L (135-145)
[2024-09-22 19:21] LABS: Basophils # (A) 0.08 X 10*3/uL (0.00-0.10); Basophils % (A) 0.9 %; Eosinophils # (A) 0.22 X 10*3/uL (0.04-0.35); Eosinophils % (A) 2.5 %; HCT 41.5 % (39.6-50.0); HGB 14.3 g/dL (13.0-17.0); Lymphocytes # (A) 2.04 X 10*3/uL (0.90-5.00); Lymphocytes % (A) 23.1 %; MCH 33.1 pg (27.0-32.0); MCHC 34.5 g/dL (32.0-37.0); MCV 96.1 FL (80.0-97.0); Mean Platelet Volume 9.1 FL (9.5-12.2); Monocytes # (A) 0.73 X 10*3/uL (0.20-1.00); Monocytes % (A) 8.3 %; NRBC Per 100 WBC 0 X 10*3/uL (0.00-0.01); Neutrophils # (A) 5.74 X 10*3/uL (1.80-7.70); Neutrophils % (A) 64.9 %; Platelet Count 232 X 10*3/uL (140-440); RBC 4.32 X 10*6/uL (4.40-5.60); RDW 12.2 % (11.5-14.5); WBC 8.84 X 10*3/uL (4.50-10.00)
== END | disposition home or self-care (01) ==
LOC: LABPAT 14:01
PROVIDERS: ATTEND Urology
DX: Z01.812 Encounter for preprocedural laboratory examination (principal); R97.20 Elevated prostate specific antigen [PSA]
CPT/HCPCS: 80048; 85025

== ENCOUNTER 2024-09-23 12:45 | Day surgery (SDC) | payer MEDICARE ==
--- NOTE | 2024-09-20 19:22 | P.GSHP ---
History of Present Illness H&P Date: 09/20/24 Chief Complaint: Elevated PSA The patient is a 74-year-old white male who his PSA level was recently 7.23, up from 5.8 in October 2022. Prostate MRI shows a prostate volume of 80.54 cc, with an 11 mm left central zone PI-RADS 3 lesion seen. In view of the risk of prostate cancer, the patient has elected to undergo MRI fusion biopsies and comes for this reason. Patient has a history of superficial bladder cancer. He underwent UroLift implants in June 2019 but continues to experience voiding symptoms. - Cardiovascular Cardiovascular: Reports high blood pressure - Genitourinary (Male) Genitourinary: Reports urinary frequency Past Medical History Past Medical History: Eye Disorder, Hearing Disorder / Deafness, Hyperlipidemia, Hypertension, Myocardial Infarction ([place]), Osteoarthritis ([place]), Sleep Apnea/CPAP/BIPAP Additional Past Medical History / Comment(s): Bladder Cancer, uses cpap,legally blind lt eye Last Myocardial Infarction Date:: 1989 History of Any Multi-Drug Resistant Organisms: None Reported Past Surgical History: Back Surgery, Orthopedic Surgery Additional Past Surgical History / Comment(s): TUR-BT, 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 Past Anesthesia/Blood Transfusion Reactions: Postoperative Nausea & Vomiting (PONV) Additional Past Anesthesia/Blood Transfusion Reaction / Comment(s): no hx blood transfusion Additional Past Alcohol Use History / Comment(s): quit smoking pipe 2013,quit smoking vapor 2014,smoked approx on and off 40 yrs - Past Family History Mother Family Medical History: Cancer, Hypertension Father Family Medical History: Myocardial Infarction ([place]) Medications and Allergies Home Medications Medication Instructions Recorded Confirmed Type Losartan/Hydrochlorothiazide 1 tab PO QAM 05/08/16 01/29/21 History [Losartan-Hctz 100-25 mg Tab] Aspirin [Adult Low Dose Aspirin EC] 81 mg PO DAILY 03/05/17 01/29/21 History Atorvastatin [Lipitor] 40 mg PO DAILY 01/29/21 01/29/21 History Celecoxib [CeleBREX] 200 mg PO DAILY 01/29/21 01/29/21 History Allergies Allergy/AdvReac Type Severity Reaction Status Date / Time No Known Allergies Allergy Verified 02/01/21 06:50 Surgical - Exam - General well developed, well nourished, no distress - Respiratory normal respiratory effort - Genitourinary normal penis with no external lesions, testicles non-tender - Rectum Rectum: normal sphincter tone, no masses, other (Prostate moderately enlarged but smooth) - Psychiatric oriented to time, oriented to person, oriented to place, speech is normal, memory intact Assessment and Plan (1) Elevated prostate specific antigen [PSA] Status: Acute Code(s): R97.20 - ELEVATED PROSTATE SPECIFIC ANTIGEN [PSA] SNOMED Code(s): 879680496 Plan: The patient will undergo MRI-Ultrasound fusion transrectal biopsies of the prostate. The procedure has been reviewed in detail with the patient. He has been made aware of potential risks, which include anesthesia, bleeding, and infection. He is also aware that a negative biopsy does not completely rule out prostate cancer.
[2024-09-22 10:11] VITALS: BMI 32.8
[~2024-09-23 12:45] MED LIST changes: -DEXAMETHASONE SOD PHOSPHATE 4 MG/ML 1 ML VIAL IV ONE; -LACTATED RINGERS 1,000 ML IV SCH; -ONDANSETRON 4 MG/2 ML VIAL IVP ONE; +ONDANSETRON 4 MG/2 ML VIAL IVP PRN; +fentaNYL (PF) 50 MCG/ML 2 ML AMP IV PRN
[2024-09-23] MEDS: LACTATED RINGERS 1,000 ML IV ONE (13:35)
[2024-09-23 13:52] VITALS: TEMP 97.8
[2024-09-23] MEDS: GENTAMICIN 40 MG/ML 2 ML VIAL IM PRN (14:28)
[2024-09-23] MEDS: LACTATED RINGERS 1,000 ML IV SCH (14:28)
[2024-09-23] MEDS ORDERED: PROPOFOL 10 MG/ML 20 ML VIAL IV ONE (14:49)
--- NOTE | 2024-09-23 15:15 | P.OP ---
Date of Procedure: 09/23/24 Preoperative Diagnosis: Elevated PSA level Postoperative Diagnosis: Same Procedure(s) Performed: MRI fusion biopsies of the prostate Anesthesia: MAC Surgeon: Davie Cobb Estimated Blood Loss (ml): 5 IV fluids (ml): 100 Pathology: other (Prostate biopsies) Condition: stable Disposition: PACU Indications for Procedure: The patient is a 74-year-old white male who his PSA level was recently 7.23, up from 5.8 in October 2022. Prostate MRI shows a prostate volume of 80.54 cc, with an 11 mm left central zone PI-RADS 3 lesion seen. In view of the risk of prostate cancer, the patient has elected to undergo MRI fusion biopsies and comes for this reason. Operative Findings: No hypoechoic lesion seen in the target lesion. Description of Procedure: The patient was taken to the operating room and placed in the left lateral decubitus position. LUIS revealed the prostate to be enlarged but smooth. The [employer] transrectal ultrasound probe was placed intrarectally. It was then placed within the stand of the [employer] MRI/TRUS Fusion for Prostate Biopsy system. The prostate was imaged in both the axial and sagittal planes, revealing a prostate volume of 113 mL. Using the Biopty gun, 3 biopsies were obtained from the left mid transitional zone target lesion. The remaining 12 biopsies of the peripheral zone were obtained utilizing a standard template. Once the procedure was completed, the ultrasound probe was removed. The patient tolerated the procedure well was taken to the recovery room stable condition.
[2024-09-23 15:19] VITALS: RESP 14
[2024-09-23 15:32] VITALS: BP 150/88; PULSE 67
== END 2024-09-23 16:02 | disposition home or self-care (01) ==
LOC: OR 12:45
PROVIDERS: ATTEND Urology
DX: N41.0 Acute prostatitis (principal); C67.9 Malignant neoplasm of bladder, unspecified; R35.0 Frequency of micturition; I25.10 Atherosclerotic heart disease of native coronary artery without angina pectoris; I25.2 Old myocardial infarction; I10 Essential (primary) hypertension; E78.5 Hyperlipidemia, unspecified; G47.33 Obstructive sleep apnea (adult) (pediatric); H54.62 Unqualified visual loss, left eye, normal vision right eye; M19.90 Unspecified osteoarthritis, unspecified site; Z99.89 Dependence on other enabling machines and devices; Z85.51 Personal history of malignant neoplasm of bladder; Z87.891 Personal history of nicotine dependence; Z82.49 Family history of ischemic heart disease and other diseases of the circulatory system; Z79.1 Long term (current) use of non-steroidal anti-inflammatories (NSAID); Z79.02 Long term (current) use of antithrombotics/antiplatelets; Z79.82 Long term (current) use of aspirin; Z79.899 Other long term (current) drug therapy
CPT/HCPCS: 55700; 88305; J1580; J2704